=== PATIENT | female | born 1955 | race Caucasian/White ===

== ENCOUNTER 2020-04-23 14:47 | Emergency (ER) | payer MEDICARE ==
[~2020-04-23] VITALS: Ht 170.2 cm; Wt 72.7 kg
[2020-04-23 15:29] VITALS: BP 135/67
--- NOTE | 2020-04-23 16:16 | PHYS DOC ---
General Adult EDM: Chief Complaint: BACK PAIN OR INJURY HPI: HPI: 64-year-old female presents with 2 complaints. She has an acute exacerbation of her chronic low back pain as well as left lower jaw pain. She is mostly worried about the job because she has bad teeth and is concerned about infection. I was hurting quite a bit yesterday and then she felt a popping sensation. She is concerned about infection and needing antibiotic. She is currently working towards changing her insurance so she has dental coverage she knows she needs to have many of her teeth removed. Her back pain is a cramping sensation that is increased over the last couple of days. She was helping her daughter move some things and thinks she may have strained herself a little bit. She has a long history of back issues. She is taking ibuprofen with some relief. She denies fever chills. Review of Systems: Review of Systems: Constitutional: Denies fever or chills Eyes: Denies change in visual acuity HENT: Denies nasal congestion or sore throat. Dental pain Respiratory: Denies cough or shortness of breath Cardiovascular: Denies chest pain or edema GI: Denies abdominal pain, nausea, vomiting, bloody stools or diarrhea : Denies dysuria Musculoskeletal: Low back pain Integument: Denies rash Neurologic: Denies headache, focal weakness or sensory changes Endocrine: Denies polyuria or polydipsia Lymphatic: Denies swollen glands Psychiatric: Denies depression or anxiety Heart Score: Risk Factors: Risk Factors: DM, Current or recent (<one month) smoker, HTN, HLP, family history of CAD, obesity. Risk Scores: Score 0 - 3: 2.5% MACE over next 6 weeks - Discharge Home Score 4 - 6: 20.3% MACE over next 6 weeks - Admit for Clinical Observation Score 7 - 10: 72.7% MACE over next 6 weeks - Early Invasive Strategies Allergies: Allergies: Allergies Coded Allergies Type Severity Reaction Last Updated Verified No Known Drug Allergies 04/23/20 No Physical Exam: PE: Constitutional: Well developed, well nourished, no acute distress, non-toxic appearance. [] HENT: Multiple deteriorating teeth. 2 fractured teeth in the left lower quadrant with surrounding erythema of the gums. Normocephalic, atraumatic, bilateral external ears normal, oropharynx moist, no oral exudates, nose normal. [] Eyes: PERRLA, EOMI, conjunctiva normal, no discharge. [] Neck: Normal range of motion, no tenderness, supple, no stridor. [] Cardiovascular: Heart rate regular rhythm, no murmur [] Lungs & Thorax: Bilateral breath sounds clear to auscultation [] Abdomen: Bowel sounds normal, soft, no tenderness, no masses, no pulsatile masses. [] Skin: Warm, dry, no erythema, no rash. [] Back: Lumbar paraspinal muscle spasm, no CVA tenderness. [] Extremities: No tenderness, no cyanosis, no clubbing, ROM intact, no edema. [] Neurologic: Alert and oriented X 3, normal motor function, normal sensory function, no focal deficits noted. [] Psychologic: Affect normal, judgement normal, mood normal. [] EKG: EKG: [] Radiology/Procedures: Radiology/Procedures: [] Course & Med Decision Making: Course & Med Decision Making Pertinent Labs and Imaging studies reviewed. (See chart for details) I believe the patient is having muscle spasms in her low back. I will prescribe a course of Flexeril for this. I am concerned about infection from dental issues. I will place her on Augmentin for 7 days. She is stable for discharge at this time. [] Dragon Disclaimer: Rena Disclaimer: This electronic medical record was generated, in whole or in part, using a voice recognition dictation system. Departure Departure: Impression: Primary Impression: Infected tooth Additional Impression: Lumbar strain Qualified Codes: S39.012A - Strain of muscle, fascia and tendon of lower back, initial encounter Disposition: HOME/RESIDENCE PRIOR TO ADM Condition: STABLE Referrals: PCP,NO (PCP) Patient Instructions: Abscessed Tooth, [id number], Low Back Strain with [facility] Scripts Amoxicillin/Potassium Clav (AUGMENTIN 875-125 TABLET) 1 Each Tablet 1 TAB PO BID for dental infection for 7 Days, #14 TAB 0 Refills Prov: OLGA PINEDO DO 04/23/20 Cyclobenzaprine Hcl (CYCLOBENZAPRINE HCL) 10 Mg Tablet 1 TAB PO TID PRN for MUSCLE SPASMS, #30 TAB Prov: OLGA PINEDO DO 04/23/20 Justification of Admission: Justification of Admission: Justification of Admission Dx: N/A OLGA PINEDO DO Apr 23, 2020 16:16
[2020-04-23] MEDS ORDERED: AMOX1TAB61 PO (16:22)
[2020-04-23] MEDS ORDERED: CYCL-331 PO (16:22)
== END 2020-04-23 17:10 | disposition home or self-care (01) ==
LOC: ER 14:47
DX: S39.012A Strain of muscle, fascia and tendon of lower back, initial encounter (principal); K04.7 Periapical abscess without sinus; G89.29 Other chronic pain; X50.9XXA Other and unspecified overexertion or strenuous movements or postures, initial encounter; Y93.89 Activity, other specified; Y92.89 Other specified places as the place of occurrence of the external cause; Y99.8 Other external cause status
CPT/HCPCS: 99283

== ENCOUNTER → 2020-06-27 | Outpatient (CLI) | payer MEDICARE ==
[~2020-06-27] MED LIST: AMOX1TAB61 PO; CYCL-331 PO; FURO20TA3 PO; GABA-587 PO; IBUP400T18 PO; SPIR50TA4 PO
== END ==
LOC: LAB 12:47
PROVIDERS: ATTEND Nurse Anesthetist, Certified Registered
DX: Z01.812 Encounter for preprocedural laboratory examination (principal); D64.9 Anemia, unspecified; Z20.828 Contact with and (suspected) exposure to other viral communicable diseases
CPT/HCPCS: U0003

== ENCOUNTER → 2020-06-30 | Day surgery (SDC) | payer MEDICARE ==
[~2020-06-30] MED LIST changes: +IPRATRPIUM/ALBUTEROL 0.5/2.5MG 3 ML NEBU. NEB PRN; +IV RINGERS SOLUTION,LACTATED 1,000 ML IV SCH; +MIDAZOLAM HCL PF 2 MG/2 ML VIAL. IV ONE; +ONDANSETRON PF 4 MG/2 ML VIAL. IV PRN; +PROPOFOL 10,000 MCG/ML (20ML) VIAL IV ONE
[2020-06-30 11:19] VITALS: BP 122/68
== END ==
LOC: SURG 08:38
PROVIDERS: ATTEND Internal Medicine Gastroenterology
DX: K70.30 Alcoholic cirrhosis of liver without ascites (principal); I85.10 Secondary esophageal varices without bleeding; D50.9 Iron deficiency anemia, unspecified; Z98.84 Bariatric surgery status; Z79.899 Other long term (current) drug therapy
CPT/HCPCS: 43235; J2704; J7120

== ENCOUNTER → 2020-08-24 | Outpatient (CLI) | payer MEDICARE ==
[~2020-08-24] MED LIST changes: +BUPIVACAINE MPF 0.25% 30 ML VIAL. ONE; -IPRATRPIUM/ALBUTEROL 0.5/2.5MG 3 ML NEBU. NEB PRN; -IV RINGERS SOLUTION,LACTATED 1,000 ML IV SCH; +LIDOCAINE 1% PF 30 ML VIAL. ONE; -MIDAZOLAM HCL PF 2 MG/2 ML VIAL. IV ONE; -ONDANSETRON PF 4 MG/2 ML VIAL. IV PRN; -PROPOFOL 10,000 MCG/ML (20ML) VIAL IV ONE
[2020-08-24 14:15] VITALS: BP 137/69
== END | disposition home or self-care (01) ==
LOC: SURG 13:02
PROVIDERS: ATTEND Anesthesiology
DX: M47.816 Spondylosis without myelopathy or radiculopathy, lumbar region (principal); D50.9 Iron deficiency anemia, unspecified; K70.30 Alcoholic cirrhosis of liver without ascites; Z79.899 Other long term (current) drug therapy; Z98.84 Bariatric surgery status; Z98.890 Other specified postprocedural states
CPT/HCPCS: 64493; 64494; J3490

== ENCOUNTER → 2020-10-05 | Outpatient (CLI) | payer MEDICARE ==
[~2020-10-05] MED LIST changes: +BUPIVACAINE MPF 0.25% 10 ML VIAL. ONE; -BUPIVACAINE MPF 0.25% 30 ML VIAL. ONE
[2020-10-05 14:36] VITALS: BP 135/73
== END | disposition home or self-care (01) ==
LOC: SURG 13:20
PROVIDERS: ATTEND Anesthesiology
DX: M47.816 Spondylosis without myelopathy or radiculopathy, lumbar region (principal); M51.36 Other intervertebral disc degeneration, lumbar region; M79.10 Myalgia, unspecified site; K74.60 Unspecified cirrhosis of liver; D50.9 Iron deficiency anemia, unspecified; Z79.899 Other long term (current) drug therapy; Z98.84 Bariatric surgery status; Z98.890 Other specified postprocedural states
CPT/HCPCS: 64493; 64494; J3490

== ENCOUNTER → 2020-11-30 | Outpatient (CLI) | payer MEDICARE ==
[2020-10-05 14:36] VITALS: BP 135/73
[~2020-11-30] MED LIST changes: -BUPIVACAINE MPF 0.25% 10 ML VIAL. ONE; -LIDOCAINE 1% PF 30 ML VIAL. ONE
[2020-11-30 14:56] LABS: BASO % 1 % (0-3); EOS # 0.1 x10^3/uL (0.0-0.7); EOS % 2 % (0-3); HEMATOCRIT 39.5 % (36.0-47.0); HEMOGLOBIN 13.2 g/dL (12.0-15.5); LYMPH # 1.1 x10^3/uL (1.0-4.8); LYMPH % 30 % (24-48); MEAN CORPUSCULAR HEMOGLOBIN 30 pg (25-35); MEAN CORPUSCULAR HGB CONC 33 g/dL (31-37); MEAN CORPUSCULAR VOLUME 91 fL (79-100); MONO # 0.3 x10^3/uL (0.0-1.1); MONO % 7 % (0-9); NEUT # 2.4 x10^3uL (1.8-7.7); NEUT % 61 % (31-73); PLATELET COUNT 147 x10^3/uL (140-400); RED BLOOD COUNT 4.34 x10^6/uL (3.50-5.40); WHITE BLOOD COUNT 3.9 x10^3/uL (4.0-11.0)
[2020-11-30 15:05] LABS: ALBUMIN 3.9 g/dL (3.4-5.0); GFR 55.3; POTASSIUM 4.5 mmol/L (3.5-5.1); TOTAL BILIRUBIN 0.6 mg/dL (0.2-1.0); TOTAL PROTEIN 7.9 g/dL (6.4-8.2)
== END ==
LOC: LAB 12:05
PROVIDERS: ATTEND Internal Medicine Gastroenterology
DX: K70.30 Alcoholic cirrhosis of liver without ascites (principal)
CPT/HCPCS: 80053; 82105; 82306; 82607; 82728; 82746; 85025; 85610

== ENCOUNTER → 2020-11-30 | Day surgery (SDC) | payer MEDICARE ==
[~2020-11-30] MED LIST changes: +0.9 % SODIUM CHLORIDE 10 ML VIAL. ONE; +DEXAMETHASONE SOD PHOS 10 MG/ML VIAL. ONE; +IOHEXOL 300 MG/ML 50 ML VIAL. ONE
[2020-11-30 13:56] VITALS: BP 145/72
== END | disposition home or self-care (01) ==
LOC: SURG 12:30
PROVIDERS: ATTEND Anesthesiology
DX: M54.16 Radiculopathy, lumbar region (principal); M51.36 Other intervertebral disc degeneration, lumbar region; D50.9 Iron deficiency anemia, unspecified; K70.30 Alcoholic cirrhosis of liver without ascites; Z98.890 Other specified postprocedural states; Z79.899 Other long term (current) drug therapy; Z98.84 Bariatric surgery status
CPT/HCPCS: 62323; J1100; Q9967; 72275

== ENCOUNTER → 2020-12-07 | Outpatient (CLI) | payer MEDICARE ==
[2020-11-30 13:56] VITALS: BP 145/72
[~2020-12-07] MED LIST changes: -0.9 % SODIUM CHLORIDE 10 ML VIAL. ONE; -DEXAMETHASONE SOD PHOS 10 MG/ML VIAL. ONE; -IOHEXOL 300 MG/ML 50 ML VIAL. ONE
--- NOTE | 2020-12-07 16:01 | RAD ---
Right upper quadrant abdominal ultrasound History: Reason: CIRRHOSIS / Spl. Instructions: / History: Comparison: None. Technique: Transabdominal ultrasound images are obtained. Findings: The pancreas and IVC are obscured due to overlying bowel gas. Liver is normal in echogenicity. Liver contour is smooth. Portions of the liver are not well seen due to overlying bowel gas. Right hepatic lobe measures 19.5 cm. Portal flow is hepatopedal. There is no gallbladder wall thickening or pericholecystic fluid. Sonographic Phillips sign is negative . There is a 9 mm linear hypoechogenicity along the gallbladder wall that is nonmobile and nonshadowi ng and color Doppler interrogation of this structure is negative. A nonshadowing gallstone or atypica l tumefactive sludge are considerations. Common bile duct caliber is normal measuring 2 mm in diameter. The right kidney measures 10 cm in length. There is no hydronephrosis. IMPRESSION: Hepatomegaly. Electronically signed by: Edson English MD (12/07/2020 3:59 PM) [id number]
== END ==
LOC: US 08:49
PROVIDERS: ATTEND Internal Medicine Gastroenterology
DX: R16.0 Hepatomegaly, not elsewhere classified (principal); K70.30 Alcoholic cirrhosis of liver without ascites
CPT/HCPCS: 76705

== ENCOUNTER → 2021-02-15 | Day surgery (SDC) | payer MEDICARE ==
[~2021-02-15] MED LIST changes: +0.9 % SODIUM CHLORIDE 10 ML VIAL. ONE; +BUPIVACAINE MPF 0.25% 10 ML VIAL. ONE; +DEXAMETHASONE SOD PHOS 10 MG/ML VIAL. ONE; +IOHEXOL 300 MG/ML 50 ML VIAL. ONE; +LIDOCAINE 1% PF 30 ML VIAL. ONE; +MULT-766 PO
[2021-02-15 14:48] VITALS: BP 158/76
== END | disposition home or self-care (01) ==
LOC: SURG 13:41
PROVIDERS: ATTEND Anesthesiology
DX: M54.16 Radiculopathy, lumbar region (principal); D50.9 Iron deficiency anemia, unspecified; Z79.899 Other long term (current) drug therapy; Z98.890 Other specified postprocedural states
CPT/HCPCS: 62323; J1100; J3490; Q9967